=== PATIENT | male | born 1970 | race Caucasian/White ===

== ENCOUNTER 2016-11-24 20:38 | Emergency (ER) | payer MEDICAID ==
[~2016-11-24] VITALS: Ht 177.8 cm; Wt 77.1 kg
[~2016-11-24 20:38] MED LIST: BACL20TA PO; BUPR100T14 PO; CLON05T PO; DIVA500T59 PO; GABA300C8 PO; LOS50T PO; NOR10T PO; PRAV20TA3 PO; TRAZ150T79 PO
[2016-11-24] MEDS ORDERED: ONDANSETRON HCL 4 MG/2 ML VIAL ONE (20:42)
[2016-11-24] MEDS ORDERED: HYDROmorphone HCL 2 MG/ML VL ONE (20:42)
[2016-11-24] MEDS ORDERED: cefTRIAXone 1GM/50ML D5W 50 ML IV ONE ×2 (20:46→21:15)
[2016-11-24] MEDS ORDERED: NEOMYCIN-BACITRACIN-POLYM 15GM TOP OINT TOP ONE (20:47)
[2016-11-24 20:54] VITALS: BP 176/80
[2016-11-24] MEDS ORDERED: ONDANSETRON HCL 4 MG/2 ML VIAL IV ONE (21:15)
[2016-11-24] MEDS ORDERED: SODIUM CHLORIDE 0.9% 1,000 ML IV ONE (21:15)
[2016-11-24] MEDS ORDERED: HYDROmorphone HCL 2 MG/ML VL IV ONE (21:15)
[2016-11-24 22:04] LABS: Basophils # (auto) 0.1 uL; Basophils % (auto) 0.5 % (0.0-2.0); DEFINITIVE VIEW TRANSMISSION; Eosinophils # (auto) 0.5 uL; Hematocrit 44.5 % (41.0-53.0); Lymphocytes # (auto) 3.6 uL; Lymphocytes % (auto) 29.6 % (10.0-50.0); Mean Corpuscular Hemoglobin 31.4 pg (28.0-32.0); Mean Corpuscular Hgb Conc. 33.7 g/dL (32.0-36.0); Mean Corpuscular Volume 93.2 fL (80.0-100.0); Mean Platelet Volume 8.3 fL (7.4-10.4); Monocytes # (auto) 1.6 uL; Monocytes % (auto) 13.3 % (0.0-12.0); Neutrophils # (auto) 6.4 uL; Neutrophils % (auto) 52.6 % (37.0-80.0); Platelet Count (auto) 487 10^3/uL (140-450); Red Cell Distribution Width 13.4 % (11.6-16.0); White Blood Cell 12.3 10^3/uL (4.4-10.8)
[2016-11-24 22:19] LABS: Albumin 4.2 g/dL (3.4-5.0); BUN/Creatinine Ratio 16.1; Bilirubin, Total 0.4 mg/dL (0.2-1.0); Calcium 8.8 mg/dL (8.5-10.1); Potassium 4.1 mmol/L (3.5-5.1); Total Protein 7.7 g/dL (6.4-8.2)
== END 2016-11-25 00:16 | disposition home or self-care (01) ==
LOC: ER 20:42
DX: T22.212A Burn of second degree of left forearm, initial encounter (principal); T22.211A Burn of second degree of right forearm, initial encounter; T23.202A Burn of second degree of left hand, unspecified site, initial encounter; T23.201A Burn of second degree of right hand, unspecified site, initial encounter; T21.11XA Burn of first degree of chest wall, initial encounter; T20.10XA Burn of first degree of head, face, and neck, unspecified site, initial encounter; T31.11 Burns involving 10-19% of body surface with 10-19% third degree burns; E78.5 Hyperlipidemia, unspecified; I10 Essential (primary) hypertension; F17.210 Nicotine dependence, cigarettes, uncomplicated; F12.10 Cannabis abuse, uncomplicated; F15.10 Other stimulant abuse, uncomplicated; X08.8XXA Exposure to other specified smoke, fire and flames, initial encounter; Y93.89 Activity, other specified; Y99.8 Other external cause status; Y92.89 Other specified places as the place of occurrence of the external cause
CPT/HCPCS: 16020; 36415; 71020; 80053; 85025; 96365; 96375; 99291; J0696; J1170; J2405; J7030

== ENCOUNTER 2018-02-05 12:40 | Emergency (ER) | payer MEDICAID, OTHER ==
[~2018-02-05] VITALS: Ht 175.3 cm; Wt 68.0 kg
[2018-02-05 12:40] VITALS: BP 133/75
[~2018-02-05 12:40] MED LIST changes: +GABA300C10 PO; -GABA300C8 PO
[2018-02-05 13:30] LABS: Hematocrit 39.6 % (41.0-53.0); Hemoglobin 13.4 g/dL (13.5-17.5); Mean Corpuscular Hemoglobin 31.2 pg (28.0-32.0); Mean Corpuscular Hgb Conc. 33.8 g/dL (32.0-36.0); Mean Corpuscular Volume 92.5 fL (80.0-100.0); Platelet Count (auto) 524 10^3/uL (140-450); Red Blood Cells 4.28 10^6/uL (4.5-5.90); Red Cell Distribution Width 12.9 % (11.8-14.3); White Blood Cell 18.6 10^3/uL (4.4-10.8)
[2018-02-05 13:42] LABS: Basophils % (manual) 0 (0.0-2.0); Blast Cells 0; Metamyelocytes % 0; Myelocytes % 0; Promyelocytes % 0; Reactive Lymphocytes 0
[2018-02-05 14:32] LABS: Band Neutrophils % (manual) 2; Eosinophils % (manual) 2 (0-7); Lymphocytes % (manual) 17 (10.0-50.0); Monocytes % (manual) 9 (0-12)
== END 2018-02-05 15:55 | disposition left against medical advice (07) ==
LOC: ER 12:40
DX: M25.561 Pain in right knee (principal); Z53.21 Procedure and treatment not carried out due to patient leaving prior to being seen by health care provider
CPT/HCPCS: 36415; 85007; 85027; 93971